=== PATIENT | female | born 1975 | race Caucasian/White ===

== ENCOUNTER 2016-11-22 14:08 | Emergency (ER) | payer MEDICAID ==
[~2016-11-22] VITALS: Ht 154.9 cm; Wt 54.0 kg
[2016-11-22 14:18] VITALS: Ht 154.9 cm; Wt 54.0 kg
[2016-11-22] MEDS ORDERED: SOD CHLORIDE 0.9% 1,000 ML IV STA (16:11)
[2016-11-22] MEDS ORDERED: ONDANSETRON 4 MG INJ IV STA (16:11)
[2016-11-22] MEDS ORDERED: METOCLOPRAMIDE 10 MG INJ IV STA (16:11)
[2016-11-22] MEDS ORDERED: KETOROLAC 30 MG INJ IV STA (16:11)
[2016-11-22 16:40] LABS: BASOPHIL # 0.1 10^3/ul (0.0-0.1); BASOPHILS % 0.9 % (0.0-2.0); EOSINOPHILS # 0.2 10^3/ul (0.0-0.5); EOSINOPHILS % 1.8 % (0.0-7.0); HEMATOCRIT 36.4 % (37.0-47.0); HEMOGLOBIN 12.3 g/dl (12.0-16.0); LYMPHOCYTES # 2.7 10^3/ul (0.8-2.9); LYMPHOCYTES % 33.3 % (15.0-51.0); MEAN CORPUSCULAR HEMOGLOBIN 30.7 pg (29.0-33.0); MEAN CORPUSCULAR HGB CONC 33.8 g/dl (32.0-37.0); MEAN CORPUSCULAR VOLUME 90.8 fl (82.0-101.0); MEAN PLATELET VOLUME 11.7 fl (7.4-10.4); MONOCYTE # 0.4 10^3/ul (0.3-0.9); NEUTROPHIL # 4.8 10^3/ul (1.6-7.5); NEUTROPHILS % 58.8 % (39.0-77.0); PLATELET COUNT 172 10^3/UL (140-415); RED BLOOD COUNT 4.01 10^6/ul (4.20-5.40); RED CELL DISTRIBUTION WIDTH 12.2 % (11.5-14.5); WHITE BLOOD COUNT 8.2 10^3/ul (4.8-10.8)
[2016-11-22 16:54] LABS: CALCIUM 9.5 mg/dl (8.4-10.2); CREATININE 0.66 mg/dl (0.44-1.00)
--- NOTE | 2016-11-22 17:06 | RADRPT ---
PROCEDURE: CT Brain without contrast. CLINICAL INDICATION: Headache and dizziness. Visual disturbance. TECHNIQUE: A CT of the brain without contrast was performed utilizing axial sections from the skul l base through the vertex. The patient was scanned without intravenous contrast enhancement. Sagitta l and coronal reformatted images were obtained using the data from the axial images. Total exam DLP is 720.23 mGy-cm. CTDIvol is 44.90 mGy. One or more of the following dose reduction techniques we re used: Automated exposure control, adjustment of the mA and/or kV according to patient size, use o f iterative reconstruction technique. COMPARISON: None available FINDINGS: There is normal gandara-white matter differentiation. There is a cavum septum pellucidum. The ventricles and cisterns are otherwise normal. There is no intracranial hemorrhage or space-occupying lesion. There is no skull fracture or lytic lesion. IMPRESSION: 1. Normal noncontrast CT scan of the brain. 2. No intracranial hemorrhage. RPTAT: QQ .Joe Jefferson MD, MD Date Time Electronically viewed and signed by .Joe Jefferson MD, on 11/22/2016 17:06 .R/
[2016-11-22] MEDS ORDERED: NAPR-260 PO (17:18)
[2016-11-22] MEDS ORDERED: HYDR-906 PO (17:19)
[2016-11-22 17:34] VITALS: BP 110/57; PULSE 79; RESP 17; TEMP 98
--- NOTE | 2016-11-22 19:26 | ERD ---
ER Documentation Chief Complaint Date/Time DATE: 11/22/16 TIME: 19:21 Chief Complaint pt bib friend with c/o left side facial pain x 10days with nausea/numbess HPI This is a 40-year-old female presents to the ER for left-sided headache that started last Tuesday. Patient states that she started vomiting and then developed a headache. Patient states that headache is located on the left side of her head and she is also experiencing left-sided facial pain and numbness. Patient also complaining of left ear pain. She admits to experiencing a spinning sensation when she gets these headaches. Patient denies any fevers or chills. She denies any head trauma. Patient denies any weaknesses of her face upper or lower extremities. Denies any recent URI symptoms. ROS 12 point review of systems was done, all negative except per HPI. Medications Home Meds Active Scripts Hydrocodone/Acetaminophen ([place] 5-325 Tablet) 1 Each Tablet, 1 EACH PO Q6, #15 TAB Prov:NBA TREVINO 11/22/16 Naproxen* (Naprosyn*) 500 Mg Tablet, 500 MG PO BID Y for PAIN AND/OR INFLAMMATION, #30 TAB Prov:NBA TREVINO C 11/22/16 Allergies Allergies: Coded Allergies: No Known Allergy (Unverified , 11/22/16) PMhx/Soc Medical and Surgical Hx: pt denies Medical Hx History of Surgery: Yes (APPENDECTOMY) Anesthesia Reaction: No Hx Neurological Disorder: No Hx Respiratory Disorders: No Hx Cardiac Disorders: No Hx Psychiatric Problems: No Hx Miscellaneous Medical Probl: No Hx Alcohol Use: No Hx Substance Use: No Hx Tobacco Use: No Smoking Status: Never smoker Physical Exam Vitals Vital Signs Date Time Temp Pulse Resp B/P Pulse Ox O2 Delivery O2 Flow Rate FiO2 11/22/16 17:34 98.0 79 17 110/57 99 Room Air 11/22/16 14:18 98.3 84 16 118/62 98 Physical Exam GENERAL: The patient is well developed and appropriate for usual state of health , in no apparent distress. HEENT: Atraumatic. Conjunctivae are pink. Pupils equal, round, and reactive to light. Extraocular muscles are grossly intact. Bilateral tympanic membranes are clear with no evidence of erythema, bulging or perforation. No sinus tenderness. NECK: C-spine is soft and supple. There is no cervical lymphadenopathy. CHEST: Clear to auscultation bilaterally. There are no rales, wheezes or rhonchi. HEART: Regular rate and rhythm. No murmurs, clicks, rubs or gallops. EXTREMITIES: Equal pulses bilaterally. There is no peripheral clubbing, cyanosis or edema. No focal swelling or erythema. Full range of motion. Grossly neurovascularly intact. NEURO: Alert and oriented. Cranial nerves II through XII are intact. Motor strength in all 4 extremities with 5/5 strength. Sensation grossly intact. Normal speech and gait. Negative Rhomberg. +2 DTRs. SKIN: There is no apparent rash or petechia. The skin is warm and dry. Result Diagram: 11/22/16 1625 11/22/16 1625 Results 24 hrs Laboratory Tests Test 11/22/16 16:25 White Blood Count 8.210^3/ul Red Blood Count 4.0110^6/ul Hemoglobin 12.3g/dl Hematocrit 36.4% Mean Corpuscular Volume 90.8fl Mean Corpuscular Hemoglobin 30.7pg Mean Corpuscular Hemoglobin Concent 33.8g/dl Red Cell Distribution Width 12.2% Platelet Count 30913^3/UL Mean Platelet Volume 11.7fl Neutrophils % 58.8% Lymphocytes % 33.3% Monocytes % 5.0% Eosinophils % 1.8% Basophils % 0.9% Nucleated Red Blood Cells % 0.0/100WBC Neutrophils # 4.810^3/ul Lymphocytes # 2.710^3/ul Monocytes # 0.410^3/ul Eosinophils # 0.210^3/ul Basophils # 0.110^3/ul Nucleated Red Blood Cells # 0.010^3/ul Sodium Level 140mmol/L Potassium Level 4.0mmol/L Chloride Level 106mmol/L Carbon Dioxide Level 27mmol/L Anion Gap 11 Blood Urea Nitrogen 14mg/dl Creatinine 0.66mg/dl Glucose Level 83mg/dl Calcium Level 9.5mg/dl Current Medications Medications (Trade) Dose Ordered Sig/Mendez Route PRN Reason Start Time Stop Time Status Last Admin Dose Admin Sodium Chloride (NS) 1,000 ml @ 1,000 mls/hr Q1H STAT IV 11/22/16 16:11 11/22/16 17:10 DC 11/22/16 16:36 Metoclopramide HCl (Reglan) 10 mg ONCE STAT IV 11/22/16 16:11 11/22/16 16:13 DC 11/22/16 16:36 Ondansetron HCl (Zofran Inj) 4 mg ONCE STAT IV 11/22/16 16:11 11/22/16 16:13 DC 11/22/16 16:36 Ketorolac Tromethamine (Toradol) 30 mg ONCE STAT IV 11/22/16 16:11 11/22/16 16:13 DC 11/22/16 16:36 Procedures/MDM Differential Diagnosis includes but is not limited to; tension headache, migraine headache, cluster headache, sinus headache, nonspecific febrile headache, trigeminal neurologia, subdural hematoma, subarachnoid bleeding, meningitis, encephalitis. Patient is neurologically intact with no focal neurological deficits. Patient may have migraine headache versus trigeminal neuralgia. Patient will be sent home with ibuprofen and [place]. She is afebrile and well-appearing. Her physical examination is benign neurological deficits or weaknesses. Patient is to follow-up with her primary care doctor within 1-2 days return to ER sooner if symptoms worsen. My medical to the medication but the patient has no history. Departure Diagnosis: Primary Impression: Trigeminal neuralgia Condition: Stable Patient Instructions: Trigeminal Neuralgia Additional Instructions: Call your primary care doctor TOMORROW for an appointment during the next 1-2 days.See the doctor sooner or return here if your condition worsens before your appointment time. NBA TREVINO Nov 22, 2016 19:26
== END 2016-11-22 17:34 | disposition home or self-care (01) ==
LOC: FTE 14:08
DX: G50.0 Trigeminal neuralgia (principal); R11.10 Vomiting, unspecified
CPT/HCPCS: 36415; 70450; 80048; 85025; 96374; 96375; J1885; J2405; J2765; J7030; Z7502